=== PATIENT | female | born 1950 | race Caucasian/White ===

== ENCOUNTER 2017-10-08 14:13 | Emergency (ER) | payer MEDICARE ==
[~2017-10-08] VITALS: Ht 162.6 cm; Wt 96.2 kg
[~2017-10-08 14:13] MED LIST: ADIPEX-P37.5 MG PO; CORTISPORIN EAR10 ML AD; CYMBALTA60 MG PO; HYDROCODON-ACE1 EACH PO; LIPITOR40 MG PO; LOSARTAN-HCTZ1 EAC2 PO; METFORMIN HCL1000 MG PO; NORCO 5-325 TA1 EACH PO; RANITIDINE HCL300 MG PO; VITAMIN D250000 UNIT PO
[2017-10-08] MEDS ORDERED: ZITHROMAX250 MG PO (16:19)
[2017-10-08] MEDS ORDERED: PROVENTIL HFA6.7 GM INH (16:19)
[2017-10-08] MEDS ORDERED: PREDNISONE20 MG PO (16:19)
== END 2017-10-08 16:42 | disposition home or self-care (01) ==
LOC: ED 14:13
DX: J40 Bronchitis, not specified as acute or chronic (principal); J98.01 Acute bronchospasm; I10 Essential (primary) hypertension; R73.03 Prediabetes; E78.00 Pure hypercholesterolemia, unspecified; Z87.891 Personal history of nicotine dependence; Z79.899 Other long term (current) drug therapy; Z79.84 Long term (current) use of oral hypoglycemic drugs
CPT/HCPCS: 71046; 94640; 99283; J7512

== ENCOUNTER 2020-12-08 21:23 | Emergency (ER) | payer MEDICARE, OTHER ==
[~2020-12-08] VITALS: Ht 162.6 cm; Wt 96.2 kg
[~2020-12-08 21:23] MED LIST changes: +PREDNISONE20 MG PO; +PROVENTIL HFA6.7 GM INH; +ZITHROMAX250 MG PO
[2020-12-08] MEDS ORDERED: DOXYCYCLINE HY100 MG PO (23:05)
== END 2020-12-08 23:10 | disposition home or self-care (01) ==
LOC: ED 21:23
DX: J01.90 Acute sinusitis, unspecified (principal); J20.9 Acute bronchitis, unspecified; I10 Essential (primary) hypertension; E78.00 Pure hypercholesterolemia, unspecified; F17.200 Nicotine dependence, unspecified, uncomplicated; Z79.899 Other long term (current) drug therapy; Z79.84 Long term (current) use of oral hypoglycemic drugs
CPT/HCPCS: 71046; 99284-25

== ENCOUNTER 2021-05-13 05:44 | Day surgery (SDC) | payer MEDICARE, OTHER ==
[~2021-05-13] VITALS: Ht 162.6 cm; Wt 96.6 kg
[~2021-05-13 05:44] MED LIST changes: +ACTOS15 MG PO; +AZELASTIN-FLUTI23 GM NS; +BAYER CHEWABLE81 MG PO; +DOXYCYCLINE HY100 MG PO; +FIBER500 MG PO; +GLUCOTROL XL5 MG PO; +JANUVIA100 MG PO; +LIPITOR40 MG; +MULTI-VITAMIN1 EACH PO; +NEURONTIN100 MG PO; +OMEPRAZOLE20 MG PO
--- NOTE | 2021-05-14 06:43 | OR ---
[facility] [address], [place] [address] Signed DATE OF OPERATION: 05/13/2021 SURGEON: Vero Quezada MD PREOPERATIVE DIAGNOSES: 1. Unremarkable colon[place] [address] Quezada. 2. Irritable bowel syndrome. 3. Chronic constipation. POSTOPERATIVE DIAGNOSES: 1. 3 mm polyps x2 at 6 cm. 2. Minimal sigmoid diverticulosis. 3. Small internal anal skin tags. PROCEDURE: Colonoscopy with hot biopsy. ESTIMATED BLOOD LOSS: None. INDICATIONS: Surekha is a 70-year-old female asked to see me for followup colonoscopy. I did her screening colonoscopy in 2009. This was unremarkable. She has a long history of irritable bowel syndrome. She often has constipation. There is no family history of colon cancer or polyps. Generally, she has no lower GI complaints. In the office, I gave Surekha a pamphlet on colonoscopy. She recalls the nature of the test. There is risk including, but not limited to gas bloating, crampy abdominal pain, bleeding, perforation requiring surgery, and missed diagnosis. We also reviewed the written instructions for a bowel prep line by line. She also recalls the need for IV conscious sedation. She had expressed understanding and wished to proceed. PROCEDURE NOTE: Surekha was taken into our endoscopy suite and placed in the left lateral decubitus position. She was given 4 mg of Versed and 100 mcg of fentanyl to cover the case. A digital rectal exam was performed and this was unremarkable. She had good sphincter tone. The adult colonoscope was introduced and advanced all around into the cecum under direct visualization of the camera. It took a little extra sedation, abdominal compression to get the scope around hepatic flexure and down into the cecum itself. Her prep was quite good. We could easily see the appendiceal orifice and the ileocecal valve. The scope was then slowly withdrawn. She has a few diverticula in the sigmoid Electronically Signed By: VERO QUEZADA MD 05/14/21 0643 PATIENT NAME: SUREKHA RAMOS OPERATIVE REPORT DATE OF : 54 REPORT #: [id number] PHYSICIAN: VERO QUEZADA MD PCP: MARITA LESTER MD REPORT IS CONFIDENTIAL AND NOT TO BE RELEASED WITHOUT AUTHORIZATION [facility] [address], [place] [address] Signed colon. They were small in size, few in number, and scattered about. We took out two tiny polyps at 6 cm in the rectum. Upon retroflexion of scope, she does have several small internal anal skin tags. After this, the gas was suctioned out and colonoscope removed. Surekha tolerated the procedure quite well. RECOMMENDATIONS: I will see Surekha back in my office in 7 to 14 days to review her results. Vero Quezada MD [facility] /[id number] cc: MD Vero Robb MD Copies: MARITA LESTER DMD, ANDREW L MD ~ Electronically Signed By: VERO QUEZADA MD 05/14/21 0643 PATIENT NAME: SUREKHA RAMOS OPERATIVE REPORT DATE OF : 54 REPORT #: [id number] PHYSICIAN: VERO QUEZADA MD PCP: MARITA LESTER MD REPORT IS CONFIDENTIAL AND NOT TO BE RELEASED WITHOUT AUTHORIZATION
== END 2021-05-13 10:00 | disposition home or self-care (01) ==
LOC: DS 05:44 → OPS 05:44 → DS 08:15 → OPS 08:15
PROVIDERS: ATTEND Colon & Rectal Surgery
PROC: 0DBP8ZZ Excision of Rectum, Via Natural or Artificial Opening Endoscopic (ICD-10-PCS; principal; 2021-05-13 08:15)
DX: K58.1 Irritable bowel syndrome with constipation (principal); K62.1 Rectal polyp; K57.30 Diverticulosis of large intestine without perforation or abscess without bleeding; K64.4 Residual hemorrhoidal skin tags; E11.9 Type 2 diabetes mellitus without complications; K21.9 Gastro-esophageal reflux disease without esophagitis; I10 Essential (primary) hypertension; F17.210 Nicotine dependence, cigarettes, uncomplicated; E78.2 Mixed hyperlipidemia; E66.9 Obesity, unspecified; Z20.822 Contact with and (suspected) exposure to COVID-19; Z79.82 Long term (current) use of aspirin; Z79.84 Long term (current) use of oral hypoglycemic drugs; Z96.653 Presence of artificial knee joint, bilateral; Z96.643 Presence of artificial hip joint, bilateral; Z88.8 Allergy status to other drugs, medicaments and biological substances; Z68.36 Body mass index [BMI] 36.0-36.9, adult; Z23 Encounter for immunization
CPT/HCPCS: 90694; 99153; G0500; J0690; J2250; J3010; J7121; U0003

== ENCOUNTER 2023-08-07 15:45 | Observation (INO) | payer MEDICARE ==
[~2023-08-07] VITALS: Ht 162.6 cm; Wt 96.3 kg
[2023-08-07 16:14] LABS: HEMATOCRIT 37.6 % (35.0-50.0); HEMOGLOBIN 12.9 g/dL (12.0-18.0); MCHC 34.4 g/dl (30-36); MCV 84.3 fl (81-99); PLATELET COUNT 249 K/uL (140-440); RBC 4.46 M/ul (4.3-5.7); RDW 13.6 (10.5-15.0)
[2023-08-07 16:31] LABS: ALBUMIN 2.8 g/dL (3.4-5.0); ALBUMIN/GLOBULIN RATIO 0.58 (1.1-2.4); ANION GAP 19.3 (7-21); BILIRUBIN, TOTAL 0.9 ng/dL (0.2-1.0); BUN/CREATININE RATIO 15.95 (6.0-28.6); CALCIUM 9.9 mg/dL (8.5-10.1); CREATININE, SERUM 1.63 mg/dL (0.55-1.02); POTASSIUM 3.3 mmol/L (3.5-5.1); PROTEIN, TOTAL 7.6 g/dL (6.4-8.2)
[2023-08-07 16:32] LABS: BANDS, MANUAL DIFF 8; LYMPHOCYTES, MANUAL DIFF 4; MONOCYTES, MANUAL DIFF 5; NEUTROPHILS, MANUAL DIFF 83
[2023-08-07 16:36] LABS: LACTIC ACID, BLOOD 5.5 mmol/L (0.4-2.0)
[2023-08-07 16:52] LABS: INFLUENZA B NAA NEGATIVE (NEGATIVE); RESPIRATORY SYNCYTIAL VIR NAA POSITIVE (NEGATIVE)
[2023-08-07 18:43] LABS: BILIRUBIN, URINE NEGATIVE (negative); BLOOD/HGB, URINE NEGATIVE (Negative); KETONE, URINE NEGATIVE (Negative); LEUK ESTERASE, URINE NEGATIVE (negative); NITRITE, URINE NEGATIVE (negative); PH, URINE 5.5 (5-7)
[2023-08-07 18:47] VITALS: BP 119/61
[2023-08-07 18:59] LABS: BACTERIA, URINE NONE SEEN /hpf (negative); CASTS, URINE HYALINE 1+ \\lpf; COLLECTION TYPE, URINE CLEAN CATCH; CRYSTALS, URINE NONE SEEN (0-1+); EPITHELIAL CELLS, URINE NS /lpf (0-1+); RED BLOOD CELLS, URINE 0-1 /hpf (0-5); REFLEX CULTURE, URINE No (No); WHITE BLOOD CELLS, URINE 0-1 /HPF (0-5)
--- NOTE | 2023-08-07 19:16 | NUR ---
PATIENT ADMITTED TO CCU FOR RSV. PT REPORTS FEELING BETTER FROM ER INITIAL PRESENTATION. PT ARRIVES ON ROOM AIR AND IS PULLED OVER TO CCU BED X3-4 PERSON. IVF STARTED AT 130 ML/HR. IV AZITHRO FINISHED. PT'S DAUGHTERS RENATA AND CLEOPATRA ARE IN ROOM. PT HELPED UP TO BSC TO VOID CONCEDNTRATED URINE. PT DID HAVE MINI STRAIGHT CATH SENT. PLAN OF CARE DISCUSSED. SP02 IS 96% ON ROOM AIR. PT IS AFEBRILE AT THIS TIME. WILL CONTINUE TO MONITOR.
--- NOTE | 2023-08-07 20:00 | NUR ---
ROUDNING, ASSESMENT, PATIENT RESTING IN BED ALERT AND ORIENTED, NO RESPIRATORY DISTRESS NOTED, PATIENT REPORTS NO NEEDS AT THIS TIME. NO NEW CONCERNS FROM ADMIT AT THIS TIME.
[2023-08-07 20:39] VITALS: BP 144/107
--- NOTE | 2023-08-07 21:27 | NUR ---
dr guajardo here in unit notified of lactic 2.4 repeat at 3 am. trending right direction.
--- NOTE | 2023-08-07 21:56 | NUR ---
PATIENT UP TO BEDSIDE COMMODE WITH STANDBY ASSIST. HAD 300ML OF URINE AND MEDIUMM BM. BACK TO BED, FRESH WATER PROVIDED, SIDE TABLE CLEANED. PATIENT HAS NO OTHER CONCERNS OR REQUESTS AT THIS TIME.
--- NOTE | 2023-08-07 22:33 | NUR ---
PATIENT RESTING QUIETLY IN BED EYES CLOSED ALERT TO RN AT BEDSIDE TO CHECK BP CUFF NOT READING. PATIENT HAS NO COMPLAINTS OR REQUESTS AT THIS TIME.
[2023-08-08 00:12] VITALS: BP 123/58
[2023-08-08 00:37] VITALS: BP 123/59
--- NOTE | 2023-08-08 00:41 | NUR ---
PATIENT ALERT TO RN AT BEDSIDE, FOR ASSESSMENT AND V/S. PATIENT REPORTS SHE HAS NO NEEDS AT THIS TIME. SHE HAS ONLY BEEN DOZING OFF AND ON. SHE SAID, "I THINK I NIGHT WANT TO TURN ON THE TV, MAYBE ITS TOO QUIET"
[2023-08-08 02:35] VITALS: BP 114/57
[2023-08-08 05:29] LABS: BASOPHILS 0.2 % (0-2); EOSINOPHILS 0.1 % (0-6); HEMATOCRIT 30.5 % (35.0-50.0); HEMOGLOBIN 10.7 g/dL (12.0-18.0); LYMPHOCYTES 10.4 % (24-44); MCH 29.2 (27-36); MCHC 34.9 g/dl (30-36); MCV 83.6 fl (81-99); MONOCYTES 6.7 % (0-12); NEUTROPHILS 82.6 % (39-80); PLATELET COUNT 205 K/uL (140-440); RBC 3.65 M/ul (4.3-5.7); RDW 13.5 (10.5-15.0)
[2023-08-08 05:39] LABS: ANION GAP 13.4 (7-21); BUN/CREATININE RATIO 20.93 (6.0-28.6); CALCIUM 8.8 mg/dL (8.5-10.1); CREATININE, SERUM 0.86 mg/dL (0.55-1.02); POTASSIUM 3.4 mmol/L (3.5-5.1)
[2023-08-08 05:59] VITALS: BP 117/61
[2023-08-08] MEDS ORDERED: LOSARTAN-HCTZ1 EACH PO (07:30)
[2023-08-08] MEDS ORDERED: PIOGLITAZONE HC30 MG PO (07:32)
[2023-08-08] MEDS ORDERED: OMEPRAZOLE40 MG PO (07:33)
[2023-08-08 08:00] VITALS: BP 128/66
[2023-08-08 08:11] VITALS: BP 128/66
--- NOTE | 2023-08-08 08:15 | NUR ---
IN PATIENT'S ROOM FOR ASSESSMENT, VITALS, AND BREAKFAST. PT HELPED UP TO BATHROOM TO VOID AND HAS A BM. PT IS STEADY ON HER FEET. PT NOW IN CHAIR FOR BREAKFAST. AM ASSESSMENT COMPLETE. EXP WHEEZING AND COARSENESS NOTED ON LUNG EXAM. PT REMAINS ON ROOM AIR. OVERALL, PATIENT STATES SHE FEELS A LOT BETTER COMPARED TO HOW SHE FELT AT HOME. IV ABX STARTED. IVF CONTINUE AT 130 ML/HR. PLAN OF CARE DISCUSSED.
[2023-08-08] MEDS ORDERED: AMOXICILLIN875 MG PO (09:39)
--- NOTE | 2023-08-08 09:47 | NUR ---
DR. VELOZ HAS BEEN IN TO SEE PATIENT AND PLAN IS FOR PATIENT TO D/C HOME TODAY. RENATA PATIENT'S DAUGHTER HAS CALLED CCU AND WAS GIVEN AN UPDATE ON THE PHONE. DISCHARGE PAPERS TO BE READIED FOR PATIENT.
--- NOTE | 2023-08-08 10:34 | NUR ---
medications reconciled using pharmacy records
--- NOTE | 2023-08-08 10:45 | NUR ---
PATIENT HELPED TO GET DRESSED AND IS PLANNING TO D/C HOME. PT'S DAUGHTER RENATA CALLED AND IS ON HER WAY TO COME GET PATIENT.
== END 2023-08-08 11:07 | disposition home or self-care (01) ==
LOC: ED 15:45 → CCU 15:47 → ED 15:47 → CCU 08-08 11:07
PROVIDERS: Emergency Medicine; ADMIT Internal Medicine; ATTEND Internal Medicine
DX: B97.4 Respiratory syncytial virus as the cause of diseases classified elsewhere (principal); I10 Essential (primary) hypertension; E11.9 Type 2 diabetes mellitus without complications; Z79.84 Long term (current) use of oral hypoglycemic drugs
CPT/HCPCS: 36415; 71045; 80048; 80053; 81001; 83605; 85025; 87502; 96361; 96366; 96367; A9270; G0378; J0456; J0696; J1815; J7030; J7060; J7121; U0002